=== PATIENT | female | born 1935 | race Caucasian/White ===

== ENCOUNTER 2017-12-29 08:36 | Emergency (ER) | payer MEDICARE, BC ==
[~2017-12-29] VITALS: Ht 162.6 cm; Wt 44.5 kg
[2017-12-29] MEDS ORDERED: ACETAMINOPHEN ES 500 MG TABLET PO ONE (08:45)
[2017-12-29] MEDS ORDERED: ACETAMINOPHEN ES 500 MG TABLET ONE (08:53)
--- NOTE | 2017-12-29 08:58 | NUR ---
pt is in room #2a. dr Ding evaluated the pt.
[2017-12-29] MEDS ORDERED: THYR30TA2 PO (09:00)
[2017-12-29] MEDS ORDERED: SINEMET (09:00)
[2017-12-29] MEDS ORDERED: THYR60TA2 PO (09:00)
[2017-12-29] MEDS ORDERED: ESTR-7 PO (09:00)
[2017-12-29 09:08] LABS: CARBON DIOXIDE 27 mmol/L (21-32); CHLORIDE 104 mmol/L (98-107); CREATININE 1.4 mg/dL (0.6-1.3); GLUCOSE 89 mg/dL (74-106); POTASSIUM 4.3 mmol/L (3.5-5.1); UREA NITROGEN, BLOOD 36 mg/dL (7-18)
[2017-12-29 09:11] LABS: BASOPHILS # (AUTO) 0.1 K/uL (0.0-8.0); EOSINOPHILS # (AUTO) 0.1 K/uL (0.0-0.7); EOSINOPHILS % (AUTO) 1.8 % (0.0-7.0); HEMOGLOBIN 14.5 g/dL (10.9-14.3); LYMPHOCYTES # (AUTO) 1.2 K/uL (20.0-40.0); LYMPHOCYTES % (AUTO) 18.2 % (20.5-51.5); MEAN CORPUSCULAR HEMOGLOBIN 34.1 uug (24.7-32.8); MEAN CORPUSCULAR HGB CONC 34 g/dL (32.3-35.6); MEAN CORPUSCULAR VOLUME 99.1 fL (75.5-95.3); MONOCYTES # (AUTO) 0.6 K/uL (2.0-10.0); MONOCYTES % (AUTO) 8.4 % (0.0-11.0); NEUTROPHILS # (AUTO) 4.8 K/uL (1.8-8.9); NEUTROPHILS % (AUTO) 70.6 % (38.5-71.5); PLATELET COUNT (AUTO) 215 K/uL (179-408); RED BLOOD CELL COUNT(AUTO) 4.24 MIL/uL (3.63-4.92); WHITE BLOOD COUNT (AUTO) 6.8 K/uL (3.8-11.8)
[2017-12-29] MEDS ORDERED: PHENYLEPHRINE 1% (EXTRA STR) NASAL SPRAY NS ONE ×2 (09:30→09:31)
--- NOTE | 2017-12-29 09:39 | NUR ---
pt was d/c'd to home. d/c instructions given to the pt. no bleding. gait is stable. pt denies pain. pt went home with her friend by his car.
[2017-12-29 09:41] VITALS: BP 141/78
== END 2017-12-29 09:43 | disposition home or self-care (01) ==
LOC: ER 08:36
DX: S00.83XA Contusion of other part of head, initial encounter (principal); E03.9 Hypothyroidism, unspecified; W01.198A Fall on same level from slipping, tripping and stumbling with subsequent striking against other object, initial encounter; Y93.89 Activity, other specified; Y92.89 Other specified places as the place of occurrence of the external cause; Y99.8 Other external cause status
CPT/HCPCS: 36415; 70450; 85025; A4663; A9150

== ENCOUNTER 2019-02-22 11:59 | Emergency (ER) | payer MEDICARE, BC ==
[~2019-02-22] VITALS: Ht 162.6 cm; Wt 42.2 kg
[~2019-02-22 11:59] MED LIST: ESTR-7 PO; SINEMET; THYR30TA2 PO; THYR60TA2 PO
[2019-02-22 12:29] VITALS: BP 132/68
--- NOTE | 2019-02-22 12:29 | NUR ---
PT WAS EVALUATED BY DR SEALS. PT WAS D/C'd TO HOME. D/C INSTRUCTIONS GIVEN TO THE PT.
== END 2019-02-22 12:30 | disposition home or self-care (01) ==
LOC: ER 11:59
DX: S81.011A Laceration without foreign body, right knee, initial encounter (principal); S00.03XA Contusion of scalp, initial encounter; E03.9 Hypothyroidism, unspecified; Z79.899 Other long term (current) drug therapy; W10.9XXA Fall (on) (from) unspecified stairs and steps, initial encounter; Y93.89 Activity, other specified; Y92.89 Other specified places as the place of occurrence of the external cause; Y99.8 Other external cause status
CPT/HCPCS: A4217; A4663